=== PATIENT | female | born 1945 | race Caucasian/White ===

== ENCOUNTER → 2017-08-31 | Outpatient (CLI) | payer MEDICARE, BC ==
[~2017-08-31] MED LIST: ACYC200; ALLEGRA ALLERG180 M1; ALLO100; ALPR.25; AMLO5; ASPI81CH; AZIT250; Alaway10 ML; BUPR150ER; Calcium Citrat250 MG; FISH OIL + D31 EACH; Flonase 0.05% N16 GM; Hair, Skin & N1 EACH; IBUP800; Ipratr-Albuterol3 ML; LEVSOD150; NAPR220; PANT40; PSEU120ER; Pravachol40 MG; Super B Comple150 MG; TRAZ50; UBID10
== END | disposition home or self-care (01) ==
LOC: LAB SHORT 13:14 → PLD 13:14
DX: N90.89 Other specified noninflammatory disorders of vulva and perineum (principal)
CPT/HCPCS: 88305